=== PATIENT | male | born 1990 | race Caucasian/White ===

== ENCOUNTER 2025-05-20 22:42 | Emergency (ER) | payer BC | END 2025-05-21 00:44 | disposition home or self-care (01) | LOC: JD.ED 22:42 | DX: S93.401A Sprain of unspecified ligament of right ankle, initial encounter (principal); X50.9XXA Other and unspecified overexertion or strenuous movements or postures, initial encounter | CPT/HCPCS: 73610; 73630; 99283; A9270 ==